=== PATIENT | female | born 1955 | race Caucasian/White ===

== ENCOUNTER 2023-06-24 01:39 | Day surgery (SDC) | payer MEDICARE, SELFPAY ==
--- NOTE | 2023-06-17 12:59 | PC.NURSE ---
Report to the Outpatient Waiting Room, entrance under the green pavilion located off [facility], at time 0830 on date _06/24/23 . Planned Procedure Time: __1030 . Time changes happen often and if your time is changed the preop area will call you the afternoon before. - You and your visitor will be asked to self-screen and do not enter if you have any COVID symptoms. - A mask is optional within the hospital at this time. Patients may have clear liquids (water, carbonated beverages, clear teas, apple juice) until 3 hours prior to surgery with a maximum of 20 ounces. - No food from midnight until time of surgery - Infants may have breast milk until 4 hours before surgery, infant formula 6 hours prior to surgery. - Children will be allowed to drink immediately following surgery. If applicable, please bring a bottle or sippy cup to assist with drinking. Juice, water, soda, and popsicles are readily available. For infants on formula, please bring formula the day of surgery. Pacifiers are allowed. Take the following medications with a SIP of water the morning of surgery: ___NONE DO NOT STOP ANY OF YOUR OTHER PRESCRIPTION MEDICATIONS PRIOR TO SURGERY ?EXCEPT THE FOLLOWING Medications to discontinue per physician ____ALL VITAMINS/SUPPLEMENTS 3 DAYS PRE OP.LAST DOSE 06/20/23 Please no make-up, nail indian, hairspray, perfume, deodorant, or body powder the day of surgery. No jewelry (including any body piercings) or valuables the day of surgery, leave them at home. Please take a shower or bath the night before, or the morning of, surgery with an antibacterial soap. Wear comfortable, loose fitting clothing. Children are encouraged to wear pajamas. - Jewelry must be removed prior to entering the operating room. Rings and piercings that are not removed may be cut off. - The hospital will not accept responsibility for valuables. - Please leave all valuables, including medications, at home the day of surgery. If you are going home after surgery, a licensed auto crane driver must drive you home. - NO public transportation without another adult if you receive anesthesia. - We recommend that an adult stay with you for 24 hours following discharge. - We also recommend that you do not drive, make important decision, drink alcoholic beverages, or take any drugs that were not prescribed by your health care provider for at least 24 hours after your discharge time. For Pediatric surgeries, we recommend two adults accompany the child home. Follow any additional instructions given to you from your surgeon. If you or anyone in your household have experienced Covid symptoms in the past week, please notify your surgeon or the nurse liaison at the phone number below for possible testing. Telephone instructions given to __PATIENT and asked if any additional questions and then verbalized understanding. Patient advised to call surgeon office or pre surgery nurse liaison [phone] if any additional questions.
[2023-06-17 13:09] VITALS: BMI 28.0
[2023-06-24] VITALS (7 sets, daily range): BP systolic 118–142; BP diastolic 59–93; PULSE 74–98; RESP 12–18; TEMP 36.7–36.9; O2SAT 96–100
--- NOTE | ~2023-06-24 | XR_ITS ---
XR surgery orthopedic Procedure: Hardware removal procedure. TECHNIQUE: Fluoroscopy used during Hardware removal procedure performed by [Pedro Pablo Frey MD ] . 5 fluoroscopic images with 3 images captured. FINDINGS: Correlate with procedure note. IMPRESSION: Fluoroscopy used during Hardware removal procedure. Interval removal of sideplate and scr ews transfixing the distal tibia and fibula. Reviewed, dictated and finalized at location A. IMPRESSION: Fluoroscopy used during Hardware removal procedure. Interval remova l of sideplate and screws transfixing the distal tibia and fibula.
--- NOTE | 2023-06-24 06:47 | WPDANESEPPF ---
Anes - Initial Pre Proc Eval Procedure: Operation Date: 06/24/23 08:00 Proposed Procedures p Removal Hardware Right Tibia and Fibula - Pedro Pablo Frey MD Date/Time: 06/24/23 06:47 Surgeon: Pedro Pablo Frey MD Pre Op Diagnosis: right ankle painful hardware Patient Data Age: 67 Gender: F Height: 1.57 m Weight: 70.4 kg Last Vital Signs Temp 36.9 C 06/24/23 06:25 Pulse 93 06/24/23 06:25 Resp 18 06/24/23 06:25 BP 134/75 06/24/23 06:25 Pulse Ox 98 06/24/23 06:25 O2 Del Method Room Air 06/24/23 06:25 Allergies Allergy/AdvReac Type Severity Reaction Status Date / Time adhesive Allergy Unknown RASH Verified 06/24/23 06:30 clarithromycin Allergy Unknown Unknown Verified 06/24/23 06:30 latex Allergy Unknown RASH Verified 06/24/23 06:30 Penicillins Allergy Unknown Hives Verified 06/24/23 06:30 Sulfa (Sulfonamide Allergy Unknown RASH Verified 06/24/23 06:30 Antibiotics) tetracaine Allergy Unknown RASH Verified 06/24/23 06:30 tetracycline Allergy Unknown Unknown Verified 06/24/23 06:30 cetirizine [From Zyrtec] Allergy Difficulty Verified 06/24/23 06:30 Breathing rosuvastatin Allergy Joint Pain Verified 06/24/23 06:30 MEPIVACAINE HCL Allergy Unknown HEART PALP. Uncoded 06/24/23 06:30 Home Medications Medication Instructions Recorded Confirmed Type ascorbic acid (vitamin C) 500 mg 500 mg PO DAILY 06/09/23 06/24/23 History tablet calcium citrate 500 mg PO DAILY 06/09/23 06/24/23 History coenzyme Q10 10 mg capsule (Co 10 mg PO ONCE 06/09/23 06/24/23 History Q-10) lisinopril 5 mg tablet 5 mg PO DAILY 06/09/23 06/24/23 History Patient hx anesthesia problems: none Family hx anesthesia problems: none Results Review: All pre-operative results and documents have been reviewed as part of the pre-operative evaluation. [facility] Past Medical History Medical History Painful orthopaedic hardware Traumatic arthritis of right ankle Surgical History Surgical History H/O: hysterectomy (~2004) History of open reduction and internal fixation (ORIF) procedure (~2012) History of tonsillectomy (~1977) Family History Family History Unknown Diabetes mellitus Hypertension Hyperlipidemia Social History Social History Smoking packs per day: 1.5 Smoking cigarettes per day: 30.0 Years smoked: 40 Smoking pack-years: 60.00 Smoking status: Current every day smoker Tobacco type: cigarettes Alcohol intake: current Drinks per week: 1 Substance use: never Living arrangements: with family Gender identity (if verbalized by the patient): Female Spiritual care concerns: No Anes - Eval Final PreProcedure Day of Procedure 06/24/23 06:47 Patient weight: overweight Heart: regular rate and rhythm Lungs: decreased breath sounds Airway: Mallampati scale class II Neurological: alert and oriented Last oral intake: >/= 8 hours ASA classification: III Emergent: no Anesthetic plan: proceed Anesthesia type and monitoring: general LMA and standard monitoring Results Review: All pre-operative results and documents have been reviewed as part of the pre-operative evaluation. Informed Consent: The patient's anesthetic plan and its attendant risks and benefits were discussed with the patient/family/POA. Questions were solicited and answers provided to the satisfaction of the patient/family/POA.
[2023-06-24] MEDS: ACETAMINOPHEN 500 MG TABLET 1000 MG PO (06:56)
[2023-06-24] MEDS: KETOROLAC 15 MG/ML VIAL (*BKC) IV PUSH (06:56)
[2023-06-24] MEDS: LACTATED RINGERS 1,000 ML 30 ML IV CONT (06:56)
--- NOTE | 2023-06-24 08:10 | WPDHPUPDATE1 ---
History and Physical Update Update Date/Time: 06/24/23 08:10 History and Physical has been reviewed, including an updated exam of the patient. There are NO changes in the patient's condition. Risks, benefits, and alternatives have been discussed and questions answered. Patient agrees to proceed with procedure.
[2023-06-24] MEDS: ceFAZolin 2 GM/D5W 50 ML 2 GM/50 ML BAG IVPB (08:12)
[2023-06-24] MEDS: methylPREDNISolone ACETATE 80 MG/ML VIAL XX (08:52)
[2023-06-24] MEDS: BUPivacaine HCL 0.5% 10 ML AMP 30 ML INFILTRATE (08:55)
--- NOTE | 2023-06-24 10:05 | P.OP_ITS ---
Procedure Note - Detailed Date of Procedure 06/24/23 Pre-op Diagnosis right ankle painful hardware Post-op Diagnosis Same Procedure Performed removal of hardware from the right tibia, removal of hardware from the right fibula Surgeon Pedro Pablo Frey MD [employer] Counselor 1st assistant offset press operator Anesthesia General Indications 67-year-old woman who is status post internal fixation for right tibia and fibular fractures. Pain over the hardware and presents for removal. 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 Description of Procedure Patient identified in the preoperative holding. Informed consent given. Operative extremity marked. Patient received intravenous antibiotics. Patient brought to the operating room where underwent general anesthetic by anesthesia team. Positioned supine on operating room table. Time-out performed confirming the patient, site of the surgery and the plan. Right lower extremity prepped and draped usual sterile surgical fashion using ChloraPrep skin solution. Foot and Ankle exsanguinated and a calf tourniquet was inflated to 225 mmHg. Local anesthetic with 0.5% Marcaine plain. Previous incisions utilized. We started with the fibula. 15 blade knife used to make a longitudinal incision over the distal fibula. Hemostasis controlled electrocautery. Fascia incised in line with skin incision. The hardware was located and removed with screw otr hazmat company driver and a [place] elevator. All of the hardware was removed from the distal fibula. The bone was noted to be osteoporotic. There was some defect. This was irrigated with solution and the defect was filled with allograft bone chips. Wound thoroughly irrigated fascia closed with 2 Vicryl suture. Skin repaired with 3-0 Monocryl subcuticular suture And 4-0 nylon for the skin. We then address the tibia. 15 blade knife used to make a longitudinal incision over the distal tibia. Hemostasis controlled electrocautery. Fascia incised in line with skin incision. The hardware was located and removed with screw otr hazmat company driver and a [place] elevator. All of the hardware was removed from the distal tibia. The bone was noted to be osteoporotic. There was some defect. This was irrigated with solution and the defect was filled with allograft bone chips. Wound thoroughly irrigated fascia closed with 2 Vicryl suture. Skin repaired with 3-0 Monocryl subcuticular suture And 4-0 nylon for the skin. Sterile dressing applied. The patient was then woken from anesthesia, extubated and taken to the recovery room in stable condition. All sponge, needle, instrument counts were correct at the end of the case. Estimated Blood Loss 5 Tourniquet Time 60 Drains No Packing No Pathology None sent Complications None Condition Stable Disposition PACU [facility] Billing Surgery - Charge Forward: Surgery Billing ([id number] X 2)
[2023-06-24] MEDS: fentaNYL CITRATE INJ (*CRX) 100 MCG/2 ML VIAL 25 MCG IV PUSH ×3 (10:19→10:39)
[2023-06-24] MEDS: oxyCODONE HCL (*CRX) 5 MG TAB IR PO (10:39)
== END 2023-06-24 11:30 | disposition home or self-care (01) ==
PROVIDERS: Visit Provider Orthopaedic Surgery
PROC: (CPT 20680; principal; 2023-06-24 08:00)
DX: T84.84XA Pain due to internal orthopedic prosthetic devices, implants and grafts, initial encounter (principal); M12.571 Traumatic arthropathy, right ankle and foot; F17.210 Nicotine dependence, cigarettes, uncomplicated; Y83.8 Other surgical procedures as the cause of abnormal reaction of the patient, or of later complication, without mention of misadventure at the time of the procedure; M81.0 Age-related osteoporosis without current pathological fracture
CPT/HCPCS: 20680 ×2; 99199; A9270; C1713; J0690; J1040; J1885; J2250; J2371; J2405; J2704; J3010; J7120